=== PATIENT | male | born 1985 | race Caucasian/White ===

== ENCOUNTER 2022-01-20 06:57 | Observation (INO) | payer OTHER ==
--- OUTSIDE RECORDS SUMMARY | 2022-01-20 07:02 | XMS REPORT | Continuity of Care Document ---
:1985 Author Organization [facility] t Address [address] [place] [id number] Care Team Providers Name Role Phone Sydnie Scott Attending Clinician Unavailable GABRIEL Attending Clinician Unavailable Mukesh Benavides Attending Clinician [phone] GABRIEL Admitting Clinician Unavailable Payers Payer Name Policy Type Policy Number Effective Date Expiration Date [facility] [id number] 2021 COMMUNITY PLAN - 00:00:00 [employer] (MEDICAID HMO) Problems Condition Condition Condition Status Onset Resolution Last Treating Co mments Source Name Details Category Date Date Treatment Clinician Date Bipolar Bipolar Problem Active [place] disorder Disorder 2-03 [facility] Depressive Depressive Problem Active [facility] [place] disorder Disorder 2-03 [facility] i 00:[facility]: [facility] Umbilical Umbilical Problem Active [facility] hernia Hernia 2-03 Commun[facility] 00:[facility]: ty [facility] Allergies, Adverse Reactions, Alerts Allergy Allergy Status Severity Reaction(s) Onset Inactive Treating Comm ents Source Name Type Date Date Clinician Advil Allergy Active [place] [facility] Naproxen Allergy Active [place] [facility] Social History Smoking Status Start Date Stop Date Source Heavy Tobacco Smoker [place] Comm [facility] Medications Ordered Filled Start Stop Current Ordering Indication Dosage Frequency Signature Comments Components Source Medication Medication Date Date Medication? Clinician (SIG) Name Name aspirin aspirin No aspirin [place] [facility] aspirin aspirin No aspirin [place] [facility] escitalopra escitalopra No escitalopr [place] m 5 mg m 5 mg am 5 mg Communi tablet TAKE tablet TAKE tablet ty ONE (1) ONE (1) TAKE ONE Hospi ta TABLET(S) TABLET(S) (1) l BY MOUTH BY MOUTH TABLET(S) Cl inics DAILY. DAILY. BY MOUTH DAILY. Vital Signs Vital Name Observation Time Observation Value Comments Source Height 2021-05-14 00:00:00 68 [in_i] [facility] s BP Diastolic 2021-03-19 00:00:00 122 mm[Hg] [facility] s Height 2021-03-19 00:00:00 68 [in_i] [facility] s BMI (Body Mass 2021-03-19 00:00:00 25.8 kg/m2 [facility] s BP Systolic 2021-03-19 00:00:00 138 mm[Hg] [facility] s Body Weight 2021-03-19 00:00:00 2720 [oz_av] [facility] Procedures This patient has no known procedures. Encounters Start End Encounter Admission Attending Care Care Encounter Source Date/Time Date/Time Type Type Clinicians Facility Department ID 2021-03-11 Outpatient Warren, STLMLC [facility] [id number] Common 11:14:32 Sydnie [id number] [facility] 2021-03-11 Outpatient Warren, STLMLC [facility] [id number] Common 11:14:19 Sydnie [id number] [facility] 2021-03-11 Outpatient Warren, STLMLC [facility] [id number] Common 10:59:46 Sydnie [id number] [facility] 2021-03-11 Outpatient Warren, STLMLC [facility] [id number] Common 10:57:45 Sydnie [id number] [facility] 2021-05-19 2021-05-19 Outpatient KODERICKEV_T [facility] [id number] [place] 09:08:00 09:08:00 0405 [facility] 2021-05-14 2021-05-14 Outpatient KODERICKEV_T [facility] [id number] [place] 09:25:00 09:25:00 0331 [facility] 2021-05-14 2021-05-14 Outpatient Red, [facility] [id number] 00:00:00 00:00:00 Mukesh [id number] 2021-05-14 2021-05-14 Mukesh [facility] [place] 00:00:00 00:00:00 Ovidio [facility] [address] [place] [facility] [address] [address] [place] [address] , Ph. 2021-05-12 2021-05-12 Outpatient KOVACEV_T [facility] [id number] -2021 [place] 09:31:00 09:31:00 0329 [facility] 2021-05-11 2021-05-11 Outpatient KOVACEV_T [facility] [id number] [place] 08:29:00 08:29:00 0328 [facility] 2021-05-07 2021-05-07 Outpatient KOVACEV_T [facility] [id number] -2021 [place] 02:27:00 02:27:00 0324 [facility] 2021-05-06 2021-05-06 Outpatient KOVACEV_T [facility] [id number] -2021 [place] 09:54:00 09:54:00 0323 [facility] 2021-05-05 2021-05-05 Outpatient KOVACEV_T [facility] [id number] -2021 [place] 04:21:00 04:21:00 0322 [facility] 2021-03-23 2021-03-23 Outpatient KOVACEV_T [facility] [id number] [place] 03:42:00 03:42:00 0207 [facility] 2021-03-19 2021-03-19 Outpatient KOVACEV_T [facility] [id number] -2021 [place] 09:42:00 09:42:00 0203 [facility] 2021-03-19 2021-03-19 Mukesh [facility] [place] - [place] 00:00:00 00:00:00 Ovidio [facility] Co lai Benavides, [facility] MD: Nika Zar[facility] Ale, [address]ty [address], [place] [address] , Ph. 2021-03-19 2021-03-19 Outpatient Red [facility] [id number] 00:00:00 00:00:00 Mukesh [id number] [place] [id number] 2021-03-18 2021-03-18 Outpatient RED_Bella [facility] [id number] -2021 [place] 09:53:00 09:53:00 0202 [facility] Results This patient has no known results.
[2022-01-20] MEDS ORDERED: MORPHINE 4 MG/ML SYR ONE (07:35)
[2022-01-20] MEDS ORDERED: ONDANSETRON 4 MG/2 ML VIAL ONE ×2 (07:36→12:36)
[2022-01-20 08:04] LABS: Absolute Lymphocytes (CBC) 1.5 K/uL (0.7-4.9); Hematocrit 45.9 % (39.6-49.0); Lymphocytes % 25.7 % (15.3-44.8); MCV 91.9 fL (80-100); MPV 10.4 fL (7.6-11.3); RBC Red Blood Cell Count 4.99 M/uL (4.33-5.43)
[2022-01-20 08:40] LABS: Platelet Estimate ADEQ
[2022-01-20 08:41] LABS: Blood Morphology Comment NOT SEEN (NOT SEEN)
[2022-01-20 09:06] LABS: Albumin 4.2 g/dL (3.4-5.0); Bilirubin Total 0.5 mg/dL (0.2-1.0); Potassium 3.9 mmol/L (3.5-5.1); Protein, Total 7.9 g/dL (6.4-8.2)
--- NOTE | 2022-01-20 09:35 | RAD REPORT ---
EXAM DESCRIPTION: CT - Abdomen Pelvis W Contrast - 01/20/2022 9:21 am CLINICAL HISTORY: Abdominal pain COMPARISON: 2009 TECHNIQUE: Computed axial tomography of the abdomen pelvis was obtained. 100 cc Isovue-300 was admin istered intravenously. Oral contrast was not requested which limits evaluation of bowel and appendix All CT scans are performed using dose optimization technique as appropriate and may include automated exposure control or mA/KV adjustment according to patient size. FINDINGS: Ventral hernia mid to upper abdomen midline. The neck measures 2.9 centimeters. Herniated sac measures 3.7 centimeters Small left renal calculus. No hydronephrosis. Mild fatty liver. Spleen, pancreas, adrenals and kidney unremarkable The liver, spleen, pancreas, adrenal and kidneys appear unremarkable. There is no evidence of diverticulitis. Normal appendix. Small right inguinal hernia IMPRESSION: Ventral hernia mid to upper abdomen
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
[2022-01-20 12:01] LABS: SARS-CoV-2 Antigen Rapid Res Negative (Negative)
[2022-01-20] MEDS ORDERED: Ringers Lactate 1,000 ML IV ONE (12:05)
[2022-01-20] MEDS ORDERED: FENTANYL CITR 100 MCG/2 ML ONE ×2 (12:26→12:35)
[2022-01-20] MEDS ORDERED: MIDAZOLAM HCL 2 MG/2 ML INJ ONE ×3 (12:26→14:50)
[2022-01-20] MEDS ORDERED: propofoL 200 MG/20 ML VIAL IV ONE (12:35)
[2022-01-20] MEDS ORDERED: ROCURONIUM 50 MG/5 ML VIAL IV ONE ×2 (12:36→14:09)
[2022-01-20] MEDS ORDERED: LIDOCAINE 2% MPF 5 ML VIAL ONE (12:36)
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
[2022-01-20] MEDS ORDERED: dexAMETHasone 10 MG/ML VIAL ONE (13:00)
[2022-01-20] MEDS ORDERED: CEFAZOLIN SODIUM 1 GM/VIAL ONE (13:14)
[2022-01-20] MEDS ORDERED: GLYCOPYRROLATE 0.2 MG/ML SYR ONE (14:24)
[2022-01-20] MEDS ORDERED: NEOSTIGMINE 1 MG/ML -5 ML ONE (14:30)
[2022-01-20] MEDS ORDERED: HYDROMORPHONE HCL 1 MG/ML INJ ONE (14:46)
[2022-01-20] MEDS: HYDROMORPHONE HCL 1 MG/ML INJ ONE ×6 (14:50→15:21)
[2022-01-20] MEDS ORDERED: ONDANSETRON 4 MG/2 ML VIAL IV PRN (14:53)
--- NOTE | 2022-01-20 14:54 | P.OP ---
Preoperative diagnosis: Incarcerated ventral hernia Postoperative diagnosis: The same with extensive intra-abdominal adhesions Primary procedure: Laparoscopic reduction and repair of incarcerated ventral hernia with mesh Secondary procedure: Lysis of extensive intra-abdominal adhesions Anesthesia: General Estimated blood loss: 720 cc Specimen: None sent Operative Technique: Patient brought the operating room and placed supine on the table. After the induction of adequate general endotracheal anesthesia, there the abdomen was prepped with a DuraPrep solution, he was draped in the usual aseptic manner. Attention was turned towards the right lower quadrant. A skin incision was made. This brought down through the skin and subcutaneous tissue. Now we carefully used the Visiport to enter the peritoneal cavity and created pneumoperitoneum to approximately 12 mmHg. We were now able to visualize anterior abdominal wall. The we could see that the omentum was adherent to the anterior abdominal wall from about 2 fingers breath below the umbilicus all the way up towards the upper abdomen. This transverse colon was also elevated up into this area as well. On pressing on t he outside incarcerated ventral hernia we were able to gradually push it back so that we could grasp it after we had placed 2 5 mm trochars in both the left and right lower quadrants. Through these we were able to apply countertraction, and get the incarcerated omentum fat and part of the intestine reduced back into the peritoneal cavity. At the point these adhesions were now tediously taken down using blunt and sharp dissection, judicious use of the LigaSure, and mild traction. Finally the anterior abdominal wall was cleared. We could easily define the margins of the incisional hernia that had occurred where he had a transverse incision in the upper part of the abdomen joined the midline incision that was most likely done for his exploratory laparotomy. We now took ruler and measured all 5 cm away from the defect. A piece of mesh measuring 6 x 8 was now introduced into the peritoneal cavity. This was brought up to the anterior abdominal wall. The mesh was anchored in place using the protractor. This was done under reduced pressure to get the best fit against the anterior abdominal wall. This having been done the pneumoperitoneum was gradually reestablished. We checked to ensure adequate hemostasis. The 10 mm trocar site in the right lower quadrant was now approximated with an absorbable suture. The pneumoperitoneum was collapsed, the sutures tied, and kevin were applied to the skin. At the end of the procedure the patient was in a stable condition was sent to the recovery room. Needle sponge instrument count were correct. No drains were placed. An abdominal binder will be put on in the recovery room. Complications: None Transferred to: Recovery Room Condition: Good
[2022-01-20 15:27] VITALS: O2SAT 95
[2022-01-20] MEDS: MEPERIDINE HCL 25 MG/ML SYR ONE ×2 (15:33→15:40)
[2022-01-20] MEDS: Ringers Lactate 1,000 ML IV SCH (16:25)
[2022-01-20] MEDS: HYDROCODONE/APAP 7.5/325 MG TAB PO PRN (16:32)
[2022-01-20 16:36] VITALS: BMI 24.3
[2022-01-20] MEDS ORDERED: PNEUMOCOCCAL VACCINE 0.5 ML IMVAC ONE (18:00)
[2022-01-20] MEDS ORDERED: INFLUENZA VACCINE (for 6+ mo) 0.5 ML DOSE IMVAC ONE (18:00)
[2022-01-21] MEDS: HYDROCODONE/APAP 7.5/325 MG TAB PO PRN ×2 (00:38→09:22)
[2022-01-21] MEDS: Ringers Lactate 1,000 ML IV SCH (00:38)
[2022-01-21 12:11] VITALS: BP 134/38; TEMP 98.9
== END 2022-01-21 13:49 | disposition home or self-care (01) ==
LOC: ER 06:57 → ERHOLD 11:27 → 4TH 14:35
PROVIDERS: ADMIT Surgery; ATTEND Surgery
PROC: 0DNU4ZZ Release Omentum, Percutaneous Endoscopic Approach (ICD-10-PCS; 2022-01-20)
PROC: 0WUF4JZ Supplement Abdominal Wall with Synthetic Substitute, Percutaneous Endoscopic Approach (ICD-10-PCS; principal; 2022-01-20 12:30)
DX: K43.6 Other and unspecified ventral hernia with obstruction, without gangrene (principal); K66.0 Peritoneal adhesions (postprocedural) (postinfection); R10.10 Upper abdominal pain, unspecified; Z20.822 Contact with and (suspected) exposure to COVID-19
CPT/HCPCS: 36415; 74177; 80053; 83690; 85025; 87811; 94010; 96374; 96375; 99285; G0378; J0690; J1100; J1170; J2001; J2175; J2250; J2405; J2704; J2710; J3010; J7120; Q9967

== ENCOUNTER 2022-02-18 14:27 | Emergency (ER) | payer OTHER ==
--- OUTSIDE RECORDS SUMMARY | 2022-02-18 14:30 | XMS REPORT | Continuity of Care Document ---
:1985 Author Organization [facility] t Address [facility] [place] [address] Care Team Providers Name Role Phone Sydnie Scott Attending Clinician Unavailable GABRIEL Attending Clinician Unavailable Mukesh Benavides Attending Clinician [phone] GABRIEL Admitting Clinician Unavailable Payers Payer Name Policy Type Policy Number Effective Date Expiration Date [facility] [id number] 2021 COMMUNITY PLAN - 00:00:00 [facility] (MEDICAID HMO) Problems Condition Condition Condition Status Onset Resolution Last Treating Co mments Source Name Details Category Date Date Treatment Clinician Date Bipolar Bipolar Problem Active [place] disorder Disorder 2-03 Commun i 00:00: ty [...] Type Date Date Clinician Advil Allergy Active [place] [facility] Naproxen Allergy Active [place] [facility] Social History Smoking Status Start Date Stop Date Source Heavy Tobacco Smoker [place] [facility] Medications Ordered Filled Start Stop Current Ordering Indication Dosage Frequency Signature Comments Components Source Medication Medication Date Date Medication? Clinician (SIG) Name Name aspirin aspirin No aspirin [place] [facility] aspirin aspirin No aspirin [place] [facility] escitalopra escitalopra No escitalopr [place] m 5 mg m 5 mg am 5 mg Communi tablet TAKE tablet TAKE tablet ty ONE (1) ONE (1) TAKE ONE Hospi ta TABLET(S) TABLET(S) (1) l BY MOUTH BY MOUTH TABLET(S) Cl inics DAILY. DAILY. BY MOUTH DAILY. Vital Signs Vital Name Observation Time Observation Value Comments Source Height 2021-05-14 00:00:00 68 [in_i] [facility] BP Diastolic 2021-03-19 00:00:00 122 mm[Hg] [facility] Height 2021-03-19 00:00:00 68 [in_i] [facility] BMI (Body Mass 2021-03-19 00:00:00 25.8 kg/m2 [facility] s BP Systolic 2021-03-19 00:00:00 138 mm[Hg] [facility] Body Weight 2021-03-19 00:00:00 2720 [oz_av] [facility] Procedures This patient has no known procedures. Encounters Start End Encounter Admission Attending Care Care Encounter Source Date/Time Date/Time Type Type Clinicians Facility Department ID 2021-03-11 [place]patient [place] ST[facility] [id number] [place] 11:14:32 Sydnie [id number] [facility] 2021-03-11 [place], STLMLC STLMLC [id number] Common 11:14:19 Sydnie [id number] [facility] 2021-03-11 [place], STLMLC STLMLC [id number] Common 10:59:46 Sydnie [id number] [facility] 2021-03-11 Out[place], STLMLC STLMLC [id number] Common 10:57:45 Sydnie [id number] [facility] 2021-05-19 2021-05-19 Outpatient KOKANGEV_T [facility] [id number] [place] 09:08:00 09:08:00 0405 [facility] 2021-05-14 2021-05-14 Outpatient RED_T [facility] [id number] [place] 09:25:00 09:25:00 0331 [facility] 2021-05-14 2021-05-14 Outpatient [place], [facility] [id number] 00:00:00 00:00:00 Mukesh [id number] [place] [id number] 2021-05-14 2021-05-14 Mukesh [facility] [place] 00:00:00 00:00:00 [facility] [address] [facility] [address] [place] [address] , Ph. 2021-05-12 2021-05-12 Outpatient KOVACEV_T [facility] [id number] -2021 [place] 09:31:00 09:31:00 0329 [facility] 2021-05-11 2021-05-11 Outpatient KOVACEV_T [facility] [id number] -2021 [place] 08:29:00 08:29:00 0328 [facility] 2021-05-07 2021-05-07 Outpatient KOVACEV_T [facility] [id number] -2021 [place] 02:27:00 02:27:00 0324 [facility] 2021-05-06 2021-05-06 Outpatient KOVACEV_T [facility] [id number] [place] 09:54:00 09:54:00 0323 [facility] 2021-05-05 2021-05-05 Outpatient KOVACEV_T [facility] [id number] -2021 [place] 04:21:00 04:21:00 0322 [facility] 2021-03-23 2021-03-23 Outpatient KOVACEV_T [facility] [id number] -2021 [place] 03:42:00 03:42:00 0207 [facility] 2021-03-19 2021-03-19 Outpatient KOVACEV_T [facility] [id number] -2021 [place] 09:42:00 09:42:00 0203 [facility] 2021-03-19 2021-03-19 Mukesh [facility] [place] 00:00:00 00:00:00 Ovidio [facility] MD: [address] [facility] [address] Clinic [facility] [place] [address] , Ph. 2021-03-19 2021-03-19 Outpatient Red [facility] [id number] 00:00:00 00:00:00 Mukesh [id number] [place] [id number] 2021-03-18 2021-03-18 Outpatient RED_Bella [facility] [id number] -2021[place] 09:53:00 09:53:00 0202 [facility] This patient has no known results.
[2022-02-18] MEDS ORDERED: LORazepam 2 MG/ML VIAL ONE (15:10)
[2022-02-18 15:16] LABS: Urine Blood Negative (Negative); Urine Glucose Negative (Negative); Urine Protein Negative (Negative); Urine Specific Gravity <=1.005 (1.005-1.030)
[2022-02-18 15:20] LABS: Absolute Lymphocytes (CBC) 1.2 K/uL (0.7-4.9); Hematocrit 47.7 % (39.6-49.0); Lymphocytes % 13.7 % (15.3-44.8); MCV 90.9 fL (80-100); MPV 10.1 fL (7.6-11.3); RBC Red Blood Cell Count 5.25 M/uL (4.33-5.43)
[2022-02-18 15:26] LABS: Protime INR 1.15
[2022-02-18 15:34] LABS: Barbiturates NEGATIVE (NEGATIVE); Benzodiazepines NEGATIVE (NEGATIVE); Cocaine NEGATIVE (NEGATIVE); METHAMPHETAM POSITIVE (NEGATIVE); Methadone NEGATIVE (NEGATIVE); Opiates NEGATIVE (NEGATIVE); Phencyclidine NEGATIVE (NEGATIVE); THC Cannibis POSITIVE (NEGATIVE)
[2022-02-18 16:15] LABS: ALT/SGPT 71 U/L (16-61); AST/SGOT 22 U/L (15-37); Albumin 4.9 g/dL (3.4-5.0); Alkaline Phosphatase 55 U/L (45-117); BUN Blood Urea Nitrogen 13 mg/dL (7-18); Bicarbonate 23 mmol/L (21-32); Bilirubin Direct 0.2 mg/dL (0-0.2); Bilirubin Total 0.9 mg/dL (0.2-1.0); Glomerular Filtration Rate 90 ml/min (=/>90); Glucose Level 121 mg/dL (74-106); Potassium 3.3 mmol/L (3.5-5.1); Protein, Total 8.9 g/dL (6.4-8.2); Sodium Level 133 mmol/L (136-145)
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
[2022-02-18 18:08] VITALS: BP 145/61; TEMP 98.1; O2SAT 100
== END 2022-02-18 17:58 | disposition home or self-care (01) ==
LOC: ER 14:27
DX: F41.1 Generalized anxiety disorder (principal); F17.210 Nicotine dependence, cigarettes, uncomplicated; Z88.5 Allergy status to narcotic agent
CPT/HCPCS: 36415; 80048; 80076; 80307; 80320; 80329; 81003; 85025; 85610; 85730; 96374; 99284